=== PATIENT | female | born 1990 | race Caucasian/White ===

== ENCOUNTER 2018-04-10 01:42 | Inpatient (IN) ==
[2018-04-10] MEDS ORDERED: Isovue-370 500 ML INFUS..BTL IV ONE (01:59)
[2018-04-10] MEDS ORDERED: Ipratropium/Albuterol Neb 3 ML IH ONE (02:04)
--- NOTE | 2018-04-10 02:16 | Emergency Department Note ---
Disposition Clinical Impression: Pneumonia Qualifiers: Pneumonia type: due to unspecified organism Laterality: bilateral Lung location: unspecified part of lung Qualified Code(s): J18.9 - Pneumonia, unspecified organism Disposition: Admitted As Inpatient Condition: Good Time of Disposition: 06:35 SOB HPI - General Chief Complaint: ED Shortness of Breath/Dyspnea Stated Complaint: ARTIS, n/v Time Seen by Provider: 04/10/18 01:49 Source: patient Limitations: no limitations Nursing Notes Reviewed: Yes Vital Signs Reviewed: Yes - History of Present Illness Patient is a 28-year-old female who presents to [facility] ED for a 2 week history of difficulty with breathing. The patient states 2 weeks ago that she was seen at an urgent care and diagnosed with bronchitis and put on antibiotics. The patient states that over the course of the week she noticed progressive worsening of her symptoms and presented to [facility] ED 1 week ago where she was diagnosed with pneumonia. Patient states that she was given ibuprofen, and CapMist DM, and prednisone in addition to antibiotics for the management of her condition. Patient states that over the course of the last week she has noted no resolution of her symptoms and continues to deteriorate. Pt Subjective Complaint: shortness of breath, chest pain Onset (ago): week(s) Severity: severe Consistency/Duration: gradually worsening Improves with: oxygen, rest, bronchodilators, upright position Worsens with: exertion, movement Associated symptoms: Reports: chest pain, wheezing, parasthesias, nausea/vomiting Cough present: No - Related Data Home Medications Medication Instructions Recorded Confirmed Tylenol 03/27/18 Previous Rx's Medication Instructions Recorded Albuterol Sulfate [Albuterol 2 puff IH Q4HR #1 hfa.aer.ad 03/27/18 Inhaler] Guaifenesin/Dm/Pseudoephedrine 1 each PO BID #20 tablet 03/27/18 [Capmist Dm Tablet] Ibuprofen [Motrin] 800 mg PO Q8HR #30 tablet 03/27/18 RX: PredniSONE [Deltasone] 20 mg PO DAILY #12 tablet 03/27/18 Azithromycin [Azithromycin 6-Tab 250 mg PO PER PKG DI #6 tab 04/02/18 Pack] GuaiFENesin ER [Mucinex] 1,200 mg PO BID #10 tbbp.12hr 04/02/18 RX: Doxycycline 100 mg PO BID #14 capsule 04/02/18 RX: Lidocaine Patch [Lidoderm 5% 1 each TP DAILY PRN #10 adh..patch 04/02/18 patch] RX: Naproxen [Naprosyn] 500 mg PO BID #10 tablet 04/02/18 Allergies Allergy/AdvReac Type Severity Reaction Status Date / Time No Known Allergies Allergy Verified 03/27/18 20:52 All systems ED: reviewed and negative except as stated. Constitutional: Reports: weakness Cardiovascular: Reports: chest pain, dyspnea on exertion Respiratory: Reports: dyspnea, wheezes Gastrointestinal: Reports: abdominal pain, nausea, vomiting Neurological: Reports: headache, weakness, numbness, paresthesias Endocrine: Reports: fatigue Past Medical History - Past Medical History Medical history: Reports: non-contributory Surgical history: Reports: non-contributory, cholecystectomy, other Psychiatric history: Reports: no psych history POLITICAL AIDE history: Reports: no POLITICAL AIDE history - Social History Smoking Status: Current every day smoker Smokeless Tobacco Status: No Alcohol use: Reports: none Drug use: Reports: none Physical Exam - General Limitations: no limitations General appearance: alert, in distress - Head Head exam: atraumatic, normocephalic, normal inspection - Eye Eye exam: Present: normal appearance, PERRL, EOMI. Absent: scleral icterus, conjunctival injection - Neck Neck exam: Present: trachea midline - Chest Chest inspection: Present: normal inspection, symmetric chest wall rise - Respiratory Respiratory exam: Present: normal lung sounds bilaterally, wheezes, accessory muscle use. Absent: respiratory distress, prolonged expiratory phase - Cardiovascular Cardiovascular exam: Present: regular rate, normal rhythm, +S1, +S2. Absent: JVD, +S3, +S4 - Abdominal Exam Abdominal exam: Present: soft, tenderness, normal bowel sounds. Absent: distention, guarding, rebound, rigidity Abdominal tenderness: Present: RUQ, RLQ - Neurological Exam Neurological exam: Present: alert, oriented X3 - Psychiatric Psychiatric exam: Present: anxious - Skin Skin exam: Present: warm, dry, intact, normal color. Absent: cyanosis, diaphoresis Course Course Narrative: Patient history, review systems and physical exam are concerning for further respiratory deterioration. Chest x-ray and EKG, BNP ordered for evaluation of cardiopulmonary process, CBC, CMP, blood cultures and lactate ordered to eval uate for metabolic derangements. CT ordered for evaluation of possible PE, DuoNeb nebs ordered for management of patient's symptoms. Vital Signs Temperature 98.2 F 04/10/18 01:45 Pulse Rate 93 04/10/18 01:45 Respiratory Rate 24 04/10/18 01:45 Blood Pressure 128/80 04/10/18 01:45 O2 Sat by Pulse Oximetry 81 04/10/18 01:45 Temperature 98.2 F 04/10/18 01:50 Pulse Rate 93 04/10/18 01:50 Respiratory Rate 24 04/10/18 02:20 Blood Pressure 128/80 04/10/18 01:50 O2 Sat by Pulse Oximetry 95 04/10/18 02:20 Oxygen Delivery Oxygen Delivery Room Air Shortness of Breath/Dyspnea - MDM Narrative Medical decision making narrative: Patient admitted to hospital for further follow-up and management. Hospitalist accepted admission. - Lab Data Lab results reviewed: Yes I reviewed the patient's lab results. Result diagrams: 04/10/18 02:56 04/10/18 02:56 Lab Results 04/10/18 04/10/18 04/10/18 Range/Units 02:56 02:56 02:56 WBC 16.3 H (4.3-11.1) K/mcL RBC 4.66 (3.82-4.97) M/mcL Hgb 14.1 (11.5-15.4) g/dL Hct 43.2 (35.3-44.9) % MCV 92.7 (83.0-100.0) fL MCH 30.3 (28.0-33.3) pg MCHC 32.6 (31.6-35.5) g/dL RDW 12.9 (11.5-14.5) % Plt Count 372 (140-400) K/mcL MPV 8.9 L (9.4-12.4) fL Immature Gran % 0.4 (0-4) % Seg Neutrophils % 72.6 % Lymphocytes % 18.9 % Monocytes % 3.2 % Eosinophils % 4.3 % Basophils % 0.6 % Neutrophils # 11.9 H (1.6-8.9) K/mcL Lymphocytes # 3.1 (0.6-4.6) K/mcL Monocytes # 0.5 (0.0-1.3) K/mcL Eosinophils # 0.7 H (0.0-0.6) K/mcL Basophils # 0.1 (0.0-0.2) K/mcL Sodium 138 (136-145) mEq/L Potassium 3.6 (3.5-5.1) mEq/L Chloride 101 (98-107) mEq/L Carbon Dioxide 28 (23-29) mEq/L BUN 13 (6-20) mg/dL Creatinine 0.78 (0.60-1.20) mg/dL Est GFR ( Amer) > 60 (> 60) Est GFR (Non-Af Amer) > 60 (> 60) BUN/Creatinine Ratio 17 (6-26) Glucose 100 (70-105) mg/dL Calculated Osmolality 286 (280-300) Lactic Acid 0.9 (0.5-2.2) mmol/L Calcium 10.1 (8.6-10.3) mg/dL Total Bilirubin 0.5 (0.3-1.0) mg/dL Direct Bilirubin 0.2 (0.0-0.2) mg/dL Indirect Bilirubin 0.3 (0.0-1.2) mg/dL AST 18 (13-39) Units/L ALT 17 (7-52) Units/L Alkaline Phosphatase 68 (34-104) Units/L B-Natriuretic Peptide (Less than 100) pg/mL Serum Total Protein 7.3 (6.4-8.9) g/dL Albumin 4.4 (3.5-5.7) g/dL Globulin 2.9 (2.4-3.5) g/dL Albumin/Globulin Ratio 1.5 (1.1-2.2) Serum , Qual (Negative) 04/10/18 04/10/18 Range/Units 02:56 02:56 WBC (4.3-11.1) K/mcL RBC (3.82-4.97) M/mcL Hgb (11.5-15.4) g/dL Hct (35.3-44.9) % MCV (83.0-100.0) fL MCH (28.0-33.3) pg MCHC (31.6-35.5) g/dL RDW (11.5-14.5) % Plt Count (140-400) K/mcL MPV (9.4-12.4) fL Immature Gran % (0-4) % Seg Neutrophils % % Lymphocytes % % Monocytes % % Eosinophils % % Basophils % % Neutrophils # (1.6-8.9) K/mcL Lymphocytes # (0.6-4.6) K/mcL Monocytes # (0.0-1.3) K/mcL Eosinophils # (0.0-0.6) K/mcL Basophils # (0.0-0.2) K/mcL Sodium (136-145) mEq/L Potassium (3.5-5.1) mEq/L Chloride (98-107) mEq/L Carbon Dioxide (23-29) mEq/L BUN (6-20) mg/dL Creatinine (0.60-1.20) mg/dL Est GFR ( Amer) (> 60) Est GFR (Non-Af Amer) (> 60) BUN/Creatinine Ratio (6-26) Glucose (70-105) mg/dL Calculated Osmolality (280-300) Lactic Acid (0.5-2.2) mmol/L Calcium (8.6-10.3) mg/dL Total Bilirubin (0.3-1.0) mg/dL Direct Bilirubin (0.0-0.2) mg/dL Indirect Bilirubin (0.0-1.2) mg/dL AST (13-39) Units/L ALT (7-52) Units/L Alkaline Phosphatase (34-104) Units/L B-Natriuretic Peptide 26 (Less than 100) pg/mL Serum Total Protein (6.4-8.9) g/dL Albumin (3.5-5.7) g/dL Globulin (2.4-3.5) g/dL Albumin/Globulin Ratio (1.1-2.2) Serum , Qual Negative (Negative) - Radiology Data Radiology results reviewed: Yes I reviewed the patient's radiology results. Chest X-Ray 04/10/18 01:52 IMPRESSION: Improving right perihilar airspace disease. D/ / Cas Rausch MD / Cas Rausch MD Interpreting Provider: Cas Rausch MD Chest CTA 04/10/18 01:59 IMPRESSION: 1. No definite scan evidence for pulmonary embolus. 2. Pulmonary hypertension. 3. Shifting bilateral pulmonary infiltrates, likely infectious or inflammatory. D/ / Cas Rausch MD / Cas Rausch MD Interpreting Provider: Cas Rausch MD - EKG Data EKG attestation: Yes I reviewed and interpreted this EKG. EKG results narrative: Patient EKG shows normal sinus rhythm at 69 bpm NE interval of 142 ms, QRS duration of 103 ms, QT/QTc interval of 248/439 ms respectively. Patient rhythm shows a left axis deviation with R on R prime waves noted in I, aVR and aVL V1 and V2. There are no ST segment elevations or depressions, abnormal T waves, pathologic Q waves, or any other signs of acute ischemic change. Currently previous EKG is not available for comparison.
[2018-04-10 03:09] LABS: Basophils # 0.1 K/mcL (0.0-0.2); Basophils % 0.6 %; Eosinophils # 0.7 K/mcL (0.0-0.6); Eosinophils % 4.3 %; Hematocrit 43.2 % (35.3-44.9); Hemoglobin 14.1 g/dL (11.5-15.4); Immature Granulocytes % 0.4 % (0-4); Lymphocytes # 3.1 K/mcL (0.6-4.6); Lymphocytes % 18.9 %; Mean Corpuscular HGB Conc 32.6 g/dL (31.6-35.5); Mean Corpuscular Hemoglobin 30.3 pg (28.0-33.3); Mean Corpuscular Volume 92.7 fL (83.0-100.0); Mean Platelet Volume 8.9 fL (9.4-12.4); Monocytes # 0.5 K/mcL (0.0-1.3); Monocytes % 3.2 %; Neutrophils # 11.9 K/mcL (1.6-8.9); Platelet Count 372 K/mcL (140-400); Red Blood Count 4.66 M/mcL (3.82-4.97); Red Cell Distribution Width 12.9 % (11.5-14.5); Segmented Neutrophils % 72.6 %
[2018-04-10 03:34] LABS: Alanine Aminotransferase 17 Units/L (7-52); Albumin 4.4 g/dL (3.5-5.7); Albumin/Globulin Ratio 1.5 (1.1-2.2); Alkaline Phosphatase 68 Units/L (34-104); Aspartate Amino Transferase 18 Units/L (13-39); BUN/Creatinine Ratio 17 (6-26); Bilirubin,Direct 0.2 mg/dL (0.0-0.2); Bilirubin,Indirect 0.3 mg/dL (0.0-1.2); Bilirubin,Total 0.5 mg/dL (0.3-1.0); Blood Urea Nitrogen 13 mg/dL (6-20); Calcium 10.1 mg/dL (8.6-10.3); Carbon Dioxide 28 mEq/L (23-29); Chloride 101 mEq/L (98-107); Globulin 2.9 g/dL (2.4-3.5); Glucose 100 mg/dL (70-105); Osmolality,Calculated 286 (280-300); Potassium 3.6 mEq/L (3.5-5.1); Sodium 138 mEq/L (136-145); Total Protein 7.3 g/dL (6.4-8.9); eGFR For Non-African Americans > 60 (> 60)
[2018-04-10] MEDS ORDERED: Levofloxacin 500 MG/100 ML 500 MG/100 ML BAG IVPB ONE (04:11)
[2018-04-10] MEDS ORDERED: Piperacillin/Tazobactam 3.375 GM in 0.9 % Sodium Chloride Mini Bag 100 ML IVPB ONE (04:11)
--- NOTE | 2018-04-10 04:13 | Emergency Department Note ---
Disposition Clinical Impression: Pneumonia Disposition: Admitted As Inpatient Condition: Good General Adult HPI - General Chief complaint: ED Shortness of Breath/Dyspnea Stated complaint: ARTIS, n/v Time Seen by Provider: 04/10/18 01:49 Source: patient Limitations: no limitations - History of Present Illness Pain Scale: 8 - Related Data Home Medications Medication Instructions Recorded Confirmed Tylenol 03/27/18 Previous Rx's Medication Instructions Recorded Albuterol Sulfate [Albuterol 2 puff IH Q4HR #1 hfa.aer.ad 03/27/18 Inhaler] Guaifenesin/Dm/Pseudoephedrine 1 each PO BID #20 tablet 03/27/18 [Capmist Dm Tablet] Ibuprofen [Motrin] 800 mg PO Q8HR #30 tablet 03/27/18 RX: PredniSONE [Deltasone] 20 mg PO DAILY #12 tablet 03/27/18 Azithromycin [Azithromycin 6-Tab 250 mg PO PER PKG DI #6 tab 04/02/18 Pack] GuaiFENesin ER [Mucinex] 1,200 mg PO BID #10 tbbp.12hr 04/02/18 RX: Doxycycline 100 mg PO BID #14 capsule 04/02/18 RX: Lidocaine Patch [Lidoderm 5% 1 each TP DAILY PRN #10 adh..patch 04/02/18 patch] RX: Naproxen [Naprosyn] 500 mg PO BID #10 tablet 04/02/18 Allergies Allergy/AdvReac Type Severity Reaction Status Date / Time No Known Allergies Allergy Verified 03/27/18 20:52 Constitutional: Reports: weakness Cardiovascular: Reports: chest pain, dyspnea on exertion Respiratory: Reports: dyspnea, wheezes Gastrointestinal: Reports: abdominal pain, nausea, vomiting Neurological: Reports: headache, weakness, numbness, paresthesias Endocrine: Reports: fatigue Past Medical History - Past Medical History Medical history: Reports: non-contributory Surgical history: Reports: non-contributory, cholecystectomy, other Psychiatric history: Reports: no psych history AGRICULTURAL SYSTEMS SPECIALIST history: Reports: no AGRICULTURAL SYSTEMS SPECIALIST history - Social History Smoking Status: Current every day smoker Smokeless Tobacco Status: No Alcohol use: Reports: none Drug use: Reports: none Physical Exam - General Limitations: no limitations General appearance: alert, in distress Course Vital Signs Temperature 98.2 F 04/10/18 01:45 Pulse Rate 93 04/10/18 01:45 Respiratory Rate 24 04/10/18 01:45 Blood Pressure 128/80 04/10/18 01:45 O2 Sat by Pulse Oximetry 81 04/10/18 01:45 Temperature 98.2 F 04/10/18 01:50 Pulse Rate 93 04/10/18 01:50 Respiratory Rate 24 04/10/18 02:20 Blood Pressure 128/80 04/10/18 01:50 O2 Sat by Pulse Oximetry 95 04/10/18 02:20 Oxygen Delivery Oxygen Delivery Room Air Medical Decision Making - Lab Data Result diagrams: 04/10/18 02:56 04/10/18 02:56 Lab Results 04/10/18 04/10/18 04/10/18 Range/Units 02:56 02:56 02:56 WBC 16.3 H (4.3-11.1) K/mcL RBC 4.66 (3.82-4.97) M/mcL Hgb 14.1 (11.5-15.4) g/dL Hct 43.2 (35.3-44.9) % MCV 92.7 (83.0-100.0) fL MCH 30.3 (28.0-33.3) pg MCHC 32.6 (31.6-35.5) g/dL RDW 12.9 (11.5-14.5) % Plt Count 372 (140-400) K/mcL MPV 8.9 L (9.4-12.4) fL Immature Gran % 0.4 (0-4) % Seg Neutrophils % 72.6 % Lymphocytes % 18.9 % Monocytes % 3.2 % Eosinophils % 4.3 % Basophils % 0.6 % Neutrophils # 11.9 H (1.6-8.9) K/mcL Lymphocytes # 3.1 (0.6-4.6) K/mcL Monocytes # 0.5 (0.0-1.3) K/mcL Eosinophils # 0.7 H (0.0-0.6) K/mcL Basophils # 0.1 (0.0-0.2) K/mcL Sodium 138 (136-145) mEq/L Potassium 3.6 (3.5-5.1) mEq/L Chloride 101 (98-107) mEq/L Carbon Dioxide 28 (23-29) mEq/L BUN 13 (6-20) mg/dL Creatinine 0.78 (0.60-1.20) mg/dL Est GFR ( Amer) > 60 (> 60) Est GFR (Non-Af Amer) > 60 (> 60) BUN/Creatinine Ratio 17 (6-26) Glucose 100 (70-105) mg/dL Calculated Osmolality 286 (280-300) Lactic Acid 0.9 (0.5-2.2) mmol/L Calcium 10.1 (8.6-10.3) mg/dL Total Bilirubin 0.5 (0.3-1.0) mg/dL Direct Bilirubin 0.2 (0.0-0.2) mg/dL Indirect Bilirubin 0.3 (0.0-1.2) mg/dL AST 18 (13-39) Units/L ALT 17 (7-52) Units/L Alkaline Phosphatase 68 (34-104) Units/L B-Natriuretic Peptide (Less than 100) pg/mL Serum Total Protein 7.3 (6.4-8.9) g/dL Albumin 4.4 (3.5-5.7) g/dL Globulin 2.9 (2.4-3.5) g/dL Albumin/Globulin Ratio 1.5 (1.1-2.2) Serum , Qual (Negative) 04/10/18 04/10/18 Range/Units 02:56 02:56 WBC (4.3-11.1) K/mcL RBC (3.82-4.97) M/mcL Hgb (11.5-15.4) g/dL Hct (35.3-44.9) % MCV (83.0-100.0) fL MCH (28.0-33.3) pg MCHC (31.6-35.5) g/dL RDW (11.5-14.5) % Plt Count (140-400) K/mcL MPV (9.4-12.4) fL Immature Gran % (0-4) % Seg Neutrophils % % Lymphocytes % % Monocytes % % Eosinophils % % Basophils % % Neutrophils # (1.6-8.9) K/mcL Lymphocytes # (0.6-4.6) K/mcL Monocytes # (0.0-1.3) K/mcL Eosinophils # (0.0-0.6) K/mcL Basophils # (0.0-0.2) K/mcL Sodium (136-145) mEq/L Potassium (3.5-5.1) mEq/L Chloride (98-107) mEq/L Carbon Dioxide (23-29) mEq/L BUN (6-20) mg/dL Creatinine (0.60-1.20) mg/dL Est GFR ( Amer) (> 60) Est GFR (Non-Af Amer) (> 60) BUN/Creatinine Ratio (6-26) Glucose (70-105) mg/dL Calculated Osmolality (280-300) Lactic Acid (0.5-2.2) mmol/L Calcium (8.6-10.3) mg/dL Total Bilirubin (0.3-1.0) mg/dL Direct Bilirubin (0.0-0.2) mg/dL Indirect Bilirubin (0.0-1.2) mg/dL AST (13-39) Units/L ALT (7-52) Units/L Alkaline Phosphatase (34-104) Units/L B-Natriuretic Peptide 26 (Less than 100) pg/mL Serum Total Protein (6.4-8.9) g/dL Albumin (3.5-5.7) g/dL Globulin (2.4-3.5) g/dL Albumin/Globulin Ratio (1.1-2.2) Serum , Qual Negative (Negative) Critical Care Time Critical Care Time: Yes Total Critical Care Time: 30 Attestation: The high probability of a clinically significant, sudden or life threatening deterioration of the [] system(s) required my full and direct attention, intervention and personal management. The aggregate critical care time was [] minutes. This time is in addition to time spent performing reported procedures but includes the following: [] Data Review and interpretation [] Patient assessment and monitoring of vital signs [] Documentation [] Medication orders and management Attestation Statement - Attestation Attestation: I examined this patient and my medical decision-making was reviewed with the Resident Physician. I agree with the documented findings, disposition and treatment plan as described except to the extent set forth below. [id number] time provided Patient presents with dyspnea. She was hypoxic in the 70s upon arrival. She responded to supplemental oxygen. She has recently been treated as an outpatient for bronchitis and community acquired pneumonia. She states her symptoms are worsening. CTA chest indicates multifocal pneumonia. She meets sepsis criteria due to leukocytosis and tachypnea. Broad-spectrum antibiotics were initiated
[2018-04-10] MEDS ORDERED: 0.9 % Sodium Chloride 1,000 ML IVC SCH (04:45)
[2018-04-10] MEDS ORDERED: GuaiFENesin/Codeine Oral Soln 5 ML UDC PO PRN (04:56)
--- NOTE | 2018-04-10 05:15 | Internal Med History&Physical ---
Date of Encounter: 04/10/18 Time of Encounter: 05:12 Internal Medicine - H&P: HPI Chief complaint: Shortness of breath Admitted From: Home Plans for Post Hospital Care: Home History of present illness: Yael Mosley is a 78-year-old woman with no reported past medical history comes in to the ER with complaints of difficulty breathing for 3 weeks. She states that 3 weeks ago she started to have upper respiratory symptoms as noted by runny nose, cough with congestion and sore throat. She was seen in an urgent care center where she was diagnosed with a URI and prescribed steroids, albuterol and antibiotic. She says she does not improve in a week later she came to the emergency room where she was diagnosed with right-sided pneumonia. Again she was prescribed cough suppressant medications, pain control and a course of antibiotics which again she says did not improve her symptoms. She continued to have progressive shortness of breath coupled with chest pain due to the incessant coughing episodes that have become nonproductive. She says that she coughs so much that she starts to vomit afterwards. She has had subjective fever and chills and now complains of generalized malaise and difficulty breathing on mild to moderate exertion. She denies any sick contacts at home. In the emergency room today she was seen to be hypoxic on room air to 80 and required supplemental oxygen. Lab work done was revealing of a white count of 16. Chest CT was done as a follow-up to the prior x-ray and now shows progressing bilateral interstitial infiltrates in both lung dougherty. Broad- spectrum antibiotics were ordered and blood cultures obtained. She is admitted for further care Past medical history as stated above. Surgical history remarkable for cholecystectomy. She is an active smoker but denies illicit drug use on social history. 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 Family history remarkable for DM in mother. 10 point systems were reviewed and are negative except as listed above. Past Med Surg Social Fam HX - Past Medical History Medical history: non-contributory Psychiatric history: no psych history - Past Surgical History Surgical History: non-contributory, cholecystectomy, other Additional surgical history: cyst removed from wrist. tubes in ears - Social History Smoking Status: Current every day smoker Smokeless Tobacco Status: No Alcohol use: none Drug use: none Internal Medicine - H&P: Meds Albuterol Sulfate [Albuterol Inhaler] 2 puff IH Q4HR #1 hfa.aer.ad 03/27/18 [Rx] Guaifenesin/Dm/Pseudoephedrine [Capmist Dm Tablet] 1 each PO BID #20 tablet 03/27/18 [Rx] Ibuprofen [Motrin] 800 mg PO Q8HR #30 tablet 03/27/18 [Rx] PredniSONE [Deltasone] 20 mg PO DAILY #12 tablet 03/27/18 [Rx] Tylenol 03/27/18 [History] Azithromycin [Azithromycin 6-Tab Pack] 250 mg PO PER PKG DI #6 tab 04/02/18 [Rx] Doxycycline 100 mg PO BID #14 capsule 04/02/18 [Rx] GuaiFENesin ER [Mucinex] 1,200 mg PO BID #10 tbbp.12hr 04/02/18 [Rx] Lidocaine Patch [Lidoderm 5% patch] 1 each TP DAILY PRN #10 adh..patch 04/02/18 [Rx] Naproxen [Naprosyn] 500 mg PO BID #10 tablet 04/02/18 [Rx] Allergy/AdvReac Type Severity Reaction Status Date / Time No Known Allergies Allergy Verified 03/27/18 20:52 All Systems PM: A 10-system review of systems was performed and is negative for pertinent findings except as documented above in the HPI. - Constitutional Vitals: Temp Pulse Resp BP Pulse Ox 98.2 F 93 24 128/80 95 04/10/18 01:50 04/10/18 01:50 04/10/18 02:20 04/10/18 01:50 04/10/18 02:20 Exam: Vitals: Reviewed General: Obese white female sitting up in bed in no acute( Skin: Warm and supple HEENT: Moist mucous membranes. No conjunctivae pallor. Neck: No lymphadenopathy. No JVD. No carotid bruits. No palpable thyroid. Chest: Diminished thoracic expansion. Reduced breath sounds bilaterally with expiratory wheezes in the upper lung dougherty. Heart: Normal S1 & S2; rhythmic. No rubs or murmurs. Abdomen: Non-distended, soft and non-tender to palpation. No peritoneal reaction. Extremities: No clubbing, cyanosis or edema. No calf tenderness. Normal distal pulses. Neurological: Awake, alert and oriented to person, place and time. No focal deficits. Psych: Affect appropriate. Internal Med - H&P Results - Labs CBC & Chem 7: 04/10/18 02:56 04/10/18 02:56 Labs: Short CBC 04/10/18 Range/Units 02:56 WBC 16.3 H (4.3-11.1) K/mcL Hgb 14.1 (11.5-15.4) g/dL Hct 43.2 (35.3-44.9) % Plt Count 372 (140-400) K/mcL Neutrophils # 11.9 H (1.6-8.9) K/mcL BMP 04/10/18 02:56 Sodium 138 Potassium 3.6 Chloride 101 Carbon Dioxide 28 BUN 13 Creatinine 0.78 Glucose 100 Calcium 10.1 Liver Function 04/10/18 Range/Units 02:56 Total Bilirubin 0.5 (0.3-1.0) mg/dL Direct Bilirubin 0.2 (0.0-0.2) mg/dL AST 18 (13-39) Units/L ALT 17 (7-52) Units/L Alkaline Phosphatase 68 (34-104) Units/L Albumin 4.4 (3.5-5.7) g/dL - Impressions ITS Impressions Chest X-Ray 04/10/18 01:52 IMPRESSION: Improving right perihilar airspace disease. D/ / Cas Rausch MD / Cas Rausch MD Interpreting Provider: Cas Rausch MD Chest CTA 04/10/18 01:59 IMPRESSION: 1. No definite scan evidence for pulmonary embolus. 2. Pulmonary hypertension. 3. Shifting bilateral pulmonary infiltrates, likely infectious or inflammatory. D/ / Cas Rausch MD / Cas Rausch MD Interpreting Provider: Cas Rausch MD - Diagnostic Studies Chest x-ray Status: image reviewed by me Additional comments: Seen to have a right-sided perihilar infiltrate concerning for developing pneumonia on prior x-ray. CT scan - chest Status: image reviewed by me Additional comments: CT scan today depicts bilateral parenchymal infiltrates affecting both lung dougherty in a nonspecific pattern - Assessment and plan (1) Pneumonia Current Visit: Yes Status: Acute Assessment and plan: Her initial respiratory symptoms are concerning for a viral URI however her symptoms progressed over the last few weeks and she developed a pneumonia which was unresponsive to outpatient antibiotic therapy and now has bilateral infiltrates coupled with hypoxia and leukocytosis concerning for progressive process it is possible she may have had an underlying viral infection now with superimposed bacterial infection warrants broad-spectrum coverage. Staphylococcus typically has a tendency to do this however atypical agents as well need to be targeted given the duration of her symptoms and progressive nature. Need to send urine streptococcus and legionella antigen testing, blood cultures, sputum Gram stain with culture, influenza swab and respiratory virus panel given the severity of her illness. Provide antimicrobial coverage with vancomycin every 12 hours and levofloxacin daily for these first 24 hours and de-escalate as deemed fit based on her clinical evolution and ongoing lab results. She should be screended for HIV prior to discharge. Qualifiers: Pneumonia type: due to unspecified organism Laterality: bilateral Lung location: unspecified part of lung Qualified Code(s): J18.9 - Pneumonia, unspecified organism (2) Acute respiratory failure with hypoxia Current Visit: Yes Status: Acute Assessment and plan: As indicated above. Supplemental oxygen as needed. Should improve with treatment of the underlying pathology. (3) Obese Current Visit: Yes Status: Acute Assessment and plan: She will benefit from oncology specialist consultation. Qualifiers: Obesity type: due to excess calories Obesity classification: adult class 2 (BMI 35 - 39.9) Serious obesity comorbidity presence: unspecified whether serious comorbidity present Body mass index: BMI 39.0-39.9 Qualified Code(s): E66.09 - Other obesity due to excess calories; Z68.39 - Body mass index (BMI) 39.0-39.9, adult (4) DVT prophylaxis Current Visit: Yes Status: Acute Assessment and plan: Subcutaneous heparin is indicated - Time Spent With Patient Total time spent is greater than 50% in coordination of care (as documented) at patient's floor/unit and/or counseling patient: Greater than 35 minutes
[2018-04-10] MEDS: Ringers Solution, Lactated 1,000 ML IVC SCH ×2 (06:57→16:04)
[2018-04-10] MEDS: Vancomycin 500 MG in 0.9 % Sodium Chloride Mini Bag 100 ML IVPB ONE ×2 (07:30→09:03)
[2018-04-10] MEDS: Ipratropium/Albuterol Neb 3 ML IH SCH ×5 (07:39→19:50)
[2018-04-10] MEDS ORDERED: Aminoglycoside Consult 1 EACH MC ONE (08:30)
[2018-04-10 08:49] LABS: ABG Base Excess 3 mEq/L (-2 to 3); ABG HCO3 28 mEq/L (21-27); ABG Oxygen Saturation 95 % (95-98); ABG PCO2 39 mmHg (35-45); ABG PH 7.45 pH Units (7.32-7.45); ABG PO2 70 mmHg (85-104); ABG TCO2 29 mEq/L (20-26)
[2018-04-10] MEDS: *HR* Heparin 5,000 UNIT/ML VIAL SQ SCH ×2 (09:03→15:15)
[2018-04-10 13:14] LABS: Amphetamine Screen,Urine Negative ng/mL (Cutoff=1000); Barbiturate Screen,Urine Negative ng/mL (Cutoff=200); Benzodiazepines Screen,Urine Negative ng/mL (Cutoff=200); Cannabinoid Screen,Urine Negative ng/mL (Cutoff = 50); Cocaine Screen,Urine Positive ng/mL (Cutoff= 300); Opiate Screen,Urine Positive ng/mL (Cutoff=300); Phencyclidine Screen,Urine Negative ng/mL (Cutoff=25)
[2018-04-10] MEDS ORDERED: *HR* Dextrose 50 % in Water (Syg) 50 ML SYRINGE IVP PRN (14:30)
[2018-04-10] MEDS ORDERED: D5% in Water 1,000 ML IVC PRN (14:30)
[2018-04-10] MEDS ORDERED: Dextrose Gel 15 GM/37.5 ML TUBE PO PRN ×2 (14:30)
--- NOTE | 2018-04-10 14:32 | Event Note ---
Date of Encounter: 04/10/18 Time of Encounter: 14:31 Patient seen and evaluated at bedside. Respiratory distress on admission has improved. Patient continues to be on Bipap. Hemodynamically stable. Will continue IV antibiotics, Nebs plus IV steroids.
[2018-04-10 14:37] LABS: Adenovirus Not Detected (Not Detect); Bordetella Pertussis Not Detected (Not Detect); Chlamydophila pneumoniae Not Detected (Not Detect); Coronavirus 229E Not Detected (Not Detect); Coronavirus HKU1 Not Detected (Not Detect); Coronavirus NL63 Not Detected (Not Detect); Coronavirus OC43 Not Detected (Not Detect); Human Metapneumovirus Not Detected (Not Detect); Human Rhinovirus/Enterovirus Not Detected (Not Detect); Influenza A Subtype 2009 H1 Not Detected (Not Detect); Influenza A Untypeable Not Detected (Not Detect); Influenza B Not Detected (Not Detect); Mycoplasma pneumoniae Not Detected (Not Detect); Parainfluenza Virus 1 Not Detected (Not Detect); Parainfluenza Virus 2 Not Detected (Not Detect); Parainfluenza Virus 3 Not Detected (Not Detect); Parainfluenza Virus 4 Not Detected (Not Detect); Respiratory Syncytial Virus Not Detected (Not Detect)
[2018-04-10] MEDS: MethylPREDNISolone 40 MG/ML VIAL IVP SCH ×2 (15:15→18:07)
[2018-04-10] MEDS: Piperacillin/Tazobactam 3.375 GM in 0.9 % Sodium Chloride Mini Bag 100 ML IVPB SCH (15:15)
[2018-04-10] MEDS: Insulin LISPRO 300 UNITS/3 ML VIAL SQ SCH (17:56)
[2018-04-10] MEDS ORDERED: Ondansetron 4 MG/2 ML VIAL IVP ONE (21:49)
[2018-04-11] MEDS: Ipratropium/Albuterol Neb 3 ML IH SCH ×5 (00:03→22:54)
[2018-04-11] MEDS: *HR* Heparin 5,000 UNIT/ML VIAL SQ SCH ×4 (00:36→23:55)
[2018-04-11] MEDS: Piperacillin/Tazobactam 3.375 GM in 0.9 % Sodium Chloride Mini Bag 100 ML IVPB SCH ×4 (00:37→23:56)
[2018-04-11] MEDS ORDERED: Acetaminophen 325 MG TABLET PO PRN (01:05)
[2018-04-11] MEDS: MethylPREDNISolone 40 MG/ML VIAL IVP SCH ×2 (05:09→17:43)
[2018-04-11 08:06] LABS: Hematocrit 37.9 % (35.3-44.9); Hemoglobin 12.5 g/dL (11.5-15.4); Mean Corpuscular Hemoglobin 30.5 pg (28.0-33.3); Mean Corpuscular Volume 92.4 fL (83.0-100.0); Mean Platelet Volume 9.2 fL (9.4-12.4); Platelet Count 344 K/mcL (140-400); Red Cell Distribution Width 12.8 % (11.5-14.5)
[2018-04-11 08:22] LABS: BUN/Creatinine Ratio 18 (6-26); Blood Urea Nitrogen 12 mg/dL (6-20); Carbon Dioxide 24 mEq/L (23-29); Chloride 105 mEq/L (98-107); Glucose 139 mg/dL (70-105); Potassium 3.8 mEq/L (3.5-5.1); Sodium 137 mEq/L (136-145); eGFR For Non-African Americans > 60 (> 60)
[2018-04-11 08:23] LABS: Calcium 9.6 mg/dL (8.6-10.3); Magnesium 1.9 mg/dL (1.6-2.6); Osmolality,Calculated 286 (280-300); Phosphorous 3.1 mg/dL (2.7-4.5)
--- NOTE | 2018-04-11 08:40 | Internal Med Progress Note ---
Hospitalist Progress Note - Encounter Date of Encounter: 04/11/18 Time of Encounter: 08:38 - Subjective Interval History: patient seen and evaluated at bedside, reports that her breathing has improved but still feeling short of breath. reports being on the Bipap until 6am this morning. Denies chest pain, nausea or vomiting. - Exam Vitals: Temp Pulse Resp BP Pulse Ox 97.5 F L 65 27 128/73 96 04/11/18 04:12 04/11/18 04:12 04/11/18 04:12 04/11/18 04:12 04/11/18 04:12 Exam: Vitals: Reviewed General: Obese. Mild distress due to shortness of breath. Skin: Warm and supple. HEENT: Moist mucous membranes. No conjunctivae pallor. Neck: No lymphadenopathy. No JVD. No carotid bruits. No palpable thyroid. Chest: Diminished breath sounds bilaterally. No wheezes, rales or rhonchi. Heart: Normal S1 & S2; rhythmic. No rubs or murmurs. Abdomen: Obese, Non-distended, soft and non-tender to palpation. Extremities: No cyanosis or edema. No calf tenderness. Normal distal pulses. Neurological: Awake, alert and oriented to person, place and time. No focal deficits. Psych: Affect appropriate. - Assessment and Plan (1) Pneumonia Current Visit: Yes Status: Acute Assessment and Plan: Suspected bacterial. organism Unidentified Plan Sputum culture negative Urine for a typical negative Blood cultures no growth pending final report. Discontinue vancomycin Continue piperacillin tazobactam Incentive spirometry Continue Solu-Medrol 40 mg IV every 12HRs (2) Acute respiratory failure with hypoxia Current Visit: Yes Status: Acute Assessment and Plan: Most likely due to pneumonia vs cocaine abuse. Resolving. But patient is still requiring 3 L of oxygen by nasal cannula. on BiPAP until this am. Plan Titrate off the BiPAP as tolerated Continue oxygen by nasal cannula, titrate for O2 sat duration more than 92%. (3) Obese Current Visit: Yes Status: Chronic DVT Prophylaxis: On heparin subcutaneous. - Summary of Assessment and Plan Summary of Assessment and Plan: Patient to remain in the hospital to be titrated off the BiPAP. Potential discharge tomorrow morning. - Time Spent with Patient Total time spent is greater than 50% in coordination of care (as documented) at patient's floor/unit and/or counseling patient: 25 - 35 minutes (33) Plan of Care Discussed with: patient (and the nurse.) Internal Medicine: Result - Labs CBC & Chem 7: 04/11/18 07:50 04/11/18 07:50 Labs: Short CBC 04/11/18 Range/Units 07:50 WBC 11.8 H (4.3-11.1) K/mcL Hgb 12.5 D (11.5-15.4) g/dL Hct 37.9 (35.3-44.9) % Plt Count 344 (140-400) K/mcL BMP 04/11/18 07:50 Sodium 137 Potassium 3.8 Chloride 105 Carbon Dioxide 24 BUN 12 Creatinine 0.65 Glucose 139 H Calcium 9.6 - ABG Interpretation ABG results: ABG ABG pH 7.45 pH Units (7.32-7.45) 04/10/18 08:40 ABG pCO2 39 mmHg (35-45) 04/10/18 08:40 ABG pO2 70 mmHg (85-104) L 04/10/18 08:40 ABG O2 Saturation 95 % (95-98) 04/10/18 08:40 Consult Discharge Plan - Plan Referrals: NONE,PCP [Primary Care Provider] - (1) Pneumonia Qualifiers: Pneumonia type: due to unspecified organism Laterality: bilateral Lung location: unspecified part of lung Qualified Code(s): J18.9 - Pneumonia, unspecified organism (3) Obese Qualifiers: Obesity type: due to excess calories Obesity classification: adult class 2 (BMI 35 - 39.9) Serious obesity comorbidity presence: unspecified whether serious comorbidity present Body mass index: BMI 39.0-39.9 Qualified Code(s): E66.09 - Other obesity due to excess calories; Z68.39 - Body mass index (BMI) 39.0-39.9, adult
[2018-04-11] MEDS ORDERED: Levofloxacin 500 MG/100 ML 500 MG/100 ML BAG IVPB SCH (09:00)
[2018-04-11] MEDS: Insulin LISPRO 300 UNITS/3 ML VIAL SQ SCH ×3 (09:03→17:40)
[2018-04-11] MEDS ORDERED: Albuterol 2.5 MG/3 ML NEBULIZER IH PRN (14:17)
[2018-04-12] MEDS: Ipratropium/Albuterol Neb 3 ML IH SCH ×2 (04:33→10:55)
[2018-04-12] MEDS: MethylPREDNISolone 40 MG/ML VIAL IVP SCH (04:58)
[2018-04-12 06:11] LABS: Basophils % 0.2 %; Eosinophils % 0.2 %; Hematocrit 37.5 % (35.3-44.9); Hemoglobin 12.4 g/dL (11.5-15.4); Immature Granulocytes % 0.7 % (0-4); Lymphocytes # 2.4 K/mcL (0.6-4.6); Lymphocytes % 19.3 %; Mean Corpuscular HGB Conc 33.1 g/dL (31.6-35.5); Mean Corpuscular Hemoglobin 30.5 pg (28.0-33.3); Mean Corpuscular Volume 92.4 fL (83.0-100.0); Mean Platelet Volume 9.1 fL (9.4-12.4); Monocytes # 0.6 K/mcL (0.0-1.3); Monocytes % 4.4 %; Neutrophils # 9.3 K/mcL (1.6-8.9); Platelet Count 354 K/mcL (140-400); Red Blood Count 4.06 M/mcL (3.82-4.97); Segmented Neutrophils % 75.2 %
[2018-04-12 06:29] LABS: BUN/Creatinine Ratio 18 (6-26); Blood Urea Nitrogen 12 mg/dL (6-20); Calcium 9.2 mg/dL (8.6-10.3); Carbon Dioxide 23 mEq/L (23-29); Chloride 106 mEq/L (98-107); Glucose 117 mg/dL (70-105); Magnesium 1.9 mg/dL (1.6-2.6); Osmolality,Calculated 287 (280-300); Phosphorous 3.4 mg/dL (2.7-4.5); Potassium 4.1 mEq/L (3.5-5.1); Sodium 138 mEq/L (136-145); eGFR For Non-African Americans > 60 (> 60)
[2018-04-12 07:11] VITALS: BP 122/56
[2018-04-12] MEDS: Insulin LISPRO 300 UNITS/3 ML VIAL SQ SCH ×2 (07:42→12:07)
[2018-04-12] MEDS: *HR* Heparin 5,000 UNIT/ML VIAL SQ SCH (09:50)
[2018-04-12] MEDS: Piperacillin/Tazobactam 3.375 GM in 0.9 % Sodium Chloride Mini Bag 100 ML IVPB SCH (09:51)
--- NOTE | 2018-04-12 11:17 | Discharge Summary ---
- NOTES TO OUTPATIENT PROVIDER Notes to Outpatient Provider: Follow-up with your primary care within a week of hospital discharge. Orders not resulted at time of discharge: Pending orders 04/10/18 03:12 Culture,Blood [BC] Stat 04/10/18 04:58 Rapid Influenza [Influenza A/B Antigen] [VIR] Stat Date of Encounter: 04/12/18 Time of Encounter: 11:13 - Discharge Diagnosis (1) Pneumonia Priority: Primary Status: Acute Qualifiers: Pneumonia type: due to unspecified organism Laterality: bilateral Lung lo cation: unspecified part of lung Qualified Code(s): J18.9 - Pneumonia, unspecified organism (2) Acute respiratory failure with hypoxia Priority: Secondary Status: Resolved (3) Obese Priority: Secondary Status: Chronic Qualifiers: Obesity type: due to excess calories Obesity classification: adult class 2 (BMI 35 - 39.9) Serious obesity comorbidity presence: unspecified whether serious comorbidity present Body mass index: BMI 39.0-39.9 Qualified Code(s): E66.09 - Other obesity due to excess calories; Z68.39 - Body mass index (BMI) 39.0-39.9, adult (4) Substance abuse Priority: Secondary Status: Acute Assessment and Plan: Positive cocaine and opiates in the urine Hospital course: Ms. Mosley is a 28 year old female with no reported past medical history. Patient presented to the emergency room due to productive cough, shortness of breath. Patient reported that in the days before presenting to the emergency room she was diagnosed with an upper respiratory infection and was prescribed steroids and antibiotics. Which did not improve her symptoms. She came back to the emergency room and was diagnosed with right-sided pneumonia, and was discha rged home on oral antibiotics. But patient return to the emergency room due to no improvement of her respiratory symptoms. Patient was found to be hypoxic on room air with an O2 sat duration 80%. Patient admitted to the hospital and treated with broad-spectrum IV antibiotics and oxygen by BiPAP as subsequently by nasal cannula. A CT of the chest was done which showed progressive bilateral and interstitial infiltrates in both lung dougherty. Patient acute symptoms have resolved. And patient is hemodynamically (afebrile for the past 72 hours, no tachycardic, normotensive, and decreased oxygen requirement) stable to be discharged home on oral antibiotics to complete 7 days course, and oral steroids. Patient was educated about importance of not using slashes snorting cocaine - Time Spent with Patient Total time spent providing and/or coordinating discharge services: Greater than 30 minutes (35 minutes.) - Discharge Medications Prescriptions: GuaiFENesin ER [Mucinex] 1,200 mg PO BID 10 Days #20 tbbp.12hr Levofloxacin [Levaquin] 750 mg PO DAILY 7 Days #7 tablet Home Medications: Albuterol Neb [Proventil Neb] 2.5 mg IH Q2H PRN 10 Days #1 inhsol 04/12/18 [Rx] GuaiFENesin ER [Mucinex] 1,200 mg PO BID 10 Days #20 tbbp.12hr 04/12/18 [Rx] Levofloxacin [Levaquin] 750 mg PO DAILY 7 Days #7 tablet 04/12/18 [Rx] Allergies/Adverse Reactions: Allergy/AdvReac Type Severity Reaction Status Date / Time No Known Allergies Allergy Verified 04/10/18 07:07 Date of admission: 04/10/18 05:35 Primary care physician: PCP NONE - Constitutional Vitals: Temp Pulse Resp BP Pulse Ox 98.1 F 57 16 122/56 94 04/12/18 07:10 04/12/18 07:10 04/12/18 11:03 04/12/18 07:10 04/12/18 11:03 Exam: Vitals: Reviewed General: Obese. In no acute distress. Skin: Warm and supple. HEENT: Moist mucous membranes. No conjunctivae pallor. Neck: No lymphadenopathy. No JVD. No carotid bruits. No palpable thyroid. Chest: Good air entry, chest is clear to auscultation bilaterally, No wheezes, rales or rhonchi. Heart: Normal S1 & S2; rhythmic. No rubs or murmurs. Abdomen: Obese, Non-distended, soft and non-tender to palpation. Extremities: No edema. Normal distal pulses. Neurological: Awake, alert and oriented to person, place and time. No focal deficits. CN II-XII intact. Psych: Affect appropriate. - Patient Status Disposition: Home, Self-Care Condition: Good Functional capacity at discharge: independent ambulation Overall status at discharge: patient is progressing back to baseline - Discharge Instructions Follow Up With: NONE,PCP [Primary Care Provider] - Forms: ED Satisfaction Letter - Diet and Activity Activity: resume usual activities as tolerated Diet: advance to your usual diet
--- NOTE | 2018-04-12 21:31 | Electrocardiograph Report ---
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
[2018-04-13] MEDS ORDERED: MethylPREDNISolone 40 MG/ML VIAL IVP SCH (09:00)
== END 2018-04-12 14:01 | disposition home or self-care (01) | DRG 139 ==
LOC: EMEROOARM 01:42 → 2NENU 05:35 → SUATTDRO 05:35 → 2NENU 07:50
PROVIDERS: ADMIT Internal Medicine; ATTEND Internal Medicine

== ENCOUNTER 2018-09-09 15:10 | Inpatient (IN) ==
[2018-09-09] MEDS ORDERED: methylPREDNISolone 125 MG/2 ML VIAL IVP ONE (15:45)
[2018-09-09] MEDS ORDERED: Ipratropium/Albuterol Neb 3 ML IH ONE (15:45)
[2018-09-09] MEDS ORDERED: 0.9 % Sodium Chloride 1,000 ML IVC ONE (15:45)
[2018-09-09] MEDS ORDERED: Ondansetron 4 MG/2 ML VIAL IVP ONE (15:47)
[2018-09-09 16:32] LABS: Basophils # 0.1 K/mcL (0.0-0.2); Basophils % 0.4 %; Eosinophils # 0.4 K/mcL (0.0-0.6); Eosinophils % 2.7 %; Hematocrit 43.1 % (35.3-44.9); Hemoglobin 14.1 g/dL (11.5-15.4); Immature Granulocytes % 0.4 % (0-4); Lymphocytes # 1.3 K/mcL (0.6-4.6); Lymphocytes % 9.3 %; Mean Corpuscular HGB Conc 32.7 g/dL (31.6-35.5); Mean Corpuscular Hemoglobin 30.3 pg (28.0-33.3); Mean Corpuscular Volume 92.7 fL (83.0-100.0); Mean Platelet Volume 9.2 fL (9.4-12.4); Monocytes # 0.4 K/mcL (0.0-1.3); Monocytes % 2.8 %; Neutrophils # 11.4 K/mcL (1.6-8.9); Platelet Count 454 K/mcL (140-400); Red Blood Count 4.65 M/mcL (3.82-4.97); Red Cell Distribution Width 12.8 % (11.5-14.5); Segmented Neutrophils % 84.4 %
[2018-09-09 16:54] LABS: BUN/Creatinine Ratio 13 (6-26); Blood Urea Nitrogen 13 mg/dL (6-20); Calcium 10.2 mg/dL (8.6-10.3); Carbon Dioxide 28 mEq/L (23-29); Chloride 101 mEq/L (98-107); Glucose 105 mg/dL (70-105); Osmolality,Calculated 288 (280-300); Potassium 3.5 mEq/L (3.5-5.1); Sodium 139 mEq/L (136-145); eGFR For Non-African Americans > 60 (> 60)
--- NOTE | 2018-09-09 16:54 | Emergency Department Note ---
Disposition Clinical Impression: Elevated troponin Pneumonia Qualifiers: Pneumonia type: due to unspecified organism Laterality: unspecified laterality Lung location: unspecified part of lung Qualified Code(s): J18.9 - Pneumonia, unspecified organism Disposition: Still a Patient Condition: Fair Referrals: NONE,PCP [Primary Care Provider] - Forms: ED Satisfaction Letter Time of Disposition: 19:10 General Adult HPI - General Chief complaint: ED Shortness of Breath/Dyspnea Stated complaint: SOB/CP Time Seen by Provider: 09/09/18 15:33 Source: patient Limitations: no limitations Nursing Notes Reviewed: Yes Vital Signs Reviewed: Yes - History of Present Illness HPI Narrative: Patient is a 28 year old female with past medical history significant for pneumonia treated in March of last year. Patient states she has had cough, w heezing, shortness of breath, nausea and vomiting for 2 days. Her shortness of breath is worsened this morning prompting her to present for treatment. She denies any recent travel or sick contacts. States she does have generalized chest pain, this is worse with coughing episodes. fevers, chills, hemoptysis, hematemesis, diarrhea. She history of denies cardiopulmonary disease. Pt Subjective Complaint: Shortness of breath Onset (ago): day(s) Location: chest Pain Scale: 7 - Related Data Home Medications Medication Instructions Recorded Confirmed No Known Home Drugs 09/09/18 09/09/18 Allergies Allergy/AdvReac Type Severity Reaction Status Date / Time No Known Allergies Allergy Verified 08/29/18 14:21 All systems ED: reviewed and negative except as stated. Constitutional: Denies: fever, chills Eyes: Denies: vision change ENT ED: Reports: congestion Cardiovascular: Reports: chest pain. Denies: palpitations, syncope Respiratory: Reports: cough, dyspnea, wheezes, sputum production. Denies: hemoptysis Gastrointestinal: Reports: abdominal pain, nausea, vomiting. Denies: diarrhea, hematemesis, hematochezia Musculoskeletal: Denies: back pain, neck pain Integumentary: Denies: rash Neurological: Reports: headache Past Medical History - Past Medical History Source: patient, nursing notes reviewed Medical history: Reports: no medical history Surgical history: Reports: non-contributory, cholecystectomy, other Psychiatric history: Reports: no psych history SPECTRAL SCIENTIST history: Reports: no SPECTRAL SCIENTIST history - Social History Smoking Status: Current every day smoker Smokeless Tobacco Status: No Alcohol use: Reports: none Drug use: Reports: none Physical Exam - General Limitations: no limitations General appearance: alert, in no apparent distress - Head Head exam: atraumatic, normocephalic - Eye Eye exam: Present: EOMI. Absent: scleral icterus, conjunctival injection - ENT ENT exam: mucous membranes dry - Neck Neck exam: Present: full ROM, trachea midline - Chest Chest inspection: Present: symmetric chest wall rise - Respiratory Respiratory exam: Present: respiratory distress, wheezes - Expanded Respiratory Exam Location: wheezes: Left, Right - Cardiovascular Cardiovascular exam: Present: regular rate, normal rhythm - Abdominal Exam Abdominal exam: Present: soft, Non-Tender. Absent: distention, guarding, rebound - Extremities Exam Extremities exam: Absent: pedal edema, calf tenderness - Neurological Exam Neurological exam: Present: alert, oriented X3, CN II-XII intact - Skin Skin exam: Present: warm, dry. Absent: rash Course Course Narrative: Patient presenting for evaluation of shortness of breath. Diffuse wheezing to exam with increased respiratory rate. Sats at 91% on 6L by oxymask. Will give triple duoneb, solumedrol, and IV fluids. Obtain cbc, bmp, troponin, chest xray, ekg, ddimer. - Reevaluation(s) Reevaluation #1: Patient is seen and re-evaluated at the bedside. Reports some improvement in comfort of breathing. Patient chest xray with LLL infiltrate, troponin 0.13, ekg with rsr' in V1 and V2, influenza negative, mildly elevated ddimer. Dr. Willingham with cardiology was consulted. She reports that she does not feel the elevated troponin is acs, attributes this to patients pneumonia or a possible PE. Patient will be sent for CTA of chest. Time: 18:00 Reevaluation #2: Patient dropped urine sample in the toilet. I have contacted the lab twice about the ordered serum test. This has just been collected. Will get CTA of the chest pending test. Plan for admission with diagnosis of hypoxia pending CTA Time: 18:53 Vital Signs Temperature 99.2 F 09/09/18 15:23 Pulse Rate 117 09/09/18 15:23 Respiratory Rate 30 09/09/18 15:23 Blood Pressure 118/81 09/09/18 15:23 O2 Sat by Pulse Oximetry 83 03/31/19 15:23 Temperature 99.7 F H 09/09/18 15:50 Pulse Rate 92 09/09/18 18:20 Respiratory Rate 20 09/09/18 18:20 Blood Pressure 114/54 09/09/18 18:20 O2 Sat by Pulse Oximetry 91 09/09/18 18:20 Oxygen Delivery Oxygen Delivery Nasal Cannula Medical Decision Making - Lab Data Result diagrams: 09/09/18 16:10 09/09/18 16:10 Lab Results 09/09/18 09/09/18 09/09/18 Range/Units 16:10 16:10 16:10 WBC 13.5 H (4.3-11.1) K/mcL RBC 4.65 (3.82-4.97) M/mcL Hgb 14.1 (11.5-15.4) g/dL Hct 43.1 (35.3-44.9) % MCV 92.7 (83.0-100.0) fL MCH 30.3 (28.0-33.3) pg MCHC 32.7 (31.6-35.5) g/dL RDW 12.8 (11.5-14.5) % Plt Count 454 H (140-400) K/mcL MPV 9.2 L (9.4-12.4) fL Immature Gran % 0.4 (0-4) % Seg Neutrophils % 84.4 % Lymphocytes % 9.3 % Monocytes % 2.8 % Eosinophils % 2.7 % Basophils % 0.4 % Neutrophils # 11.4 H (1.6-8.9) K/mcL Lymphocytes # 1.3 (0.6-4.6) K/mcL Monocytes # 0.4 (0.0-1.3) K/mcL Eosinophils # 0.4 (0.0-0.6) K/mcL Basophils # 0.1 (0.0-0.2) K/mcL D-Dimer (0-500) ng/mLFEU Sodium 139 (136-145) mEq/L Potassium 3.5 (3.5-5.1) mEq/L Chloride 101 (98-107) mEq/L Carbon Dioxide 28 (23-29) mEq/L BUN 13 (6-20) mg/dL Creatinine 0.97 (0.60-1.20) mg/dL Est GFR ( Amer) > 60 (> 60) Est GFR (Non-Af Amer) > 60 (> 60) BUN/Creatinine Ratio 13 (6-26) Glucose 105 (70-105) mg/dL Calculated Osmolality 288 (280-300) Calcium 10.2 (8.6-10.3) mg/dL Troponin I 0.13 H* (< 0.04) ng/mL B-Natriuretic Peptide 55 (Less than 100) pg/mL 09/09/18 Range/Units 16:10 WBC (4.3-11.1) K/mcL RBC (3.82-4.97) M/mcL Hgb (11.5-15.4) g/dL Hct (35.3-44.9) % MCV (83.0-100.0) fL MCH (28.0-33.3) pg MCHC (31.6-35.5) g/dL RDW (11.5-14.5) % Plt Count (140-400) K/mcL MPV (9.4-12.4) fL Immature Gran % (0-4) % Seg Neutrophils % % Lymphocytes % % Monocytes % % Eosinophils % % Basophils % % Neutrophils # (1.6-8.9) K/mcL Lymphocytes # (0.6-4.6) K/mcL Monocytes # (0.0-1.3) K/mcL Eosinophils # (0.0-0.6) K/mcL Basophils # (0.0-0.2) K/mcL D-Dimer 578 H (0-500) ng/mLFEU Sodium (136-145) mEq/L Potassium (3.5-5.1) mEq/L Chloride (98-107) mEq/L Carbon Dioxide (23-29) mEq/L BUN (6-20) mg/dL Creatinine (0.60-1.20) mg/dL Est GFR ( Amer) (> 60) Est GFR (Non-Af Amer) (> 60) BUN/Creatinine Ratio (6-26) Glucose (70-105) mg/dL Calculated Osmolality (280-300) Calcium (8.6-10.3) mg/dL Troponin I (< 0.04) ng/mL B-Natriuretic Peptide (Less than 100) pg/mL S.B.A.R. - S.B.A.R. Transition of Care: Patient was discussed with Dr. Morales. Serum test is pending, plan for CTA chest if serum is negative to evaluate for pulmonary embolism. Patient will be admitted to hospitalist service. Situation: Demographics Background: Presenting Complaint, Relevant PMH, Meds, & Allergies Assessment: Vital Signs, Course and respsone to treatment, Exam Concerns, Patient/Family Expectation, Pertinant Lab Results, Outstanding Labs Recommendation: Barrier(s) to disposition, Recommendation based on pending studies, treatments, or consults Ernesto Report Given to: Dr. Sakshi Orozco Repor Time: 19:09 Attestation Statement - Attestation Attestation: Patient was seen with resident physician. I reviewed the history, physical, as sessment and plan, and agree with the findings. I also personally evaluated this patient and had [id number] time with this patient. 28-year-old female presents to the emergency department with chief complaint of shortness of breath chest pain, fevers, and nausea and vomiting. Patient states that symptoms started a couple days ago very reminiscent of when she had pneumonia last year. She is concerned she may have pneumonia again which ultimately prompted her visit to the ER. Pain in the chest described as diffuse and worse with cough and deep inspiration. No diarrhea. No cardiac history. Review of systems as above remainder negative. Physical exam vital signs demonstrate pre-significant hypoxia on arrival. Patient was eventually placed on more breathing mask because she is a mouth breather. We are able to get her pulse ox above 90%. ENT is unremarkable. Heart regular rhythm and rate. Lungs diffuse wheezing with increased work of breathing. Abdomen is soft and nontender. Extremities are unremarkable. Neurologically intact. Skin no obvious rashes. Psych normal. ED course. EKG did not show any acute ischemic changes. Chest x-ray revealed pneumonia. Patient was somewhat improved with breathing treatments. Troponin however was positive. Not sure if this is related to the pneumonia but she also had an elevated d-dimer. We will need to get a CT scan of the chest. We did speak with cardiology about the elevated troponin and he did not suggest a dditional treatments at this time. I once workup is complete this patient will be admitted to the hospitalist service for further evaluation and treatment. Patient's breathing was markedly improved with treatments. She was started on IV antibiotics. CT scan of the chest was pending. Patient was signed out to Dr. Baca for final disposition pending results of the CT scan. Patient will be admitted to the hospitalist service as per our land. I agree with resident physician assessment and plan. Critical care time 35 minutes.
[2018-09-09 17:02] LABS: Troponin I 0.13 ng/mL (< 0.04)
[2018-09-09] MEDS ORDERED: Aspirin 325 MG TABLET PO ONE (17:03)
[2018-09-09] MEDS ORDERED: Isovue-370 500 ML BOTTLE IVP ONE (17:13)
[2018-09-09] MEDS ORDERED: Azithromycin 500 MG in D5% in Water 250 ML IVPB ONE (17:37)
[2018-09-09] MEDS ORDERED: cefTRIAXone 1,000 MG in Water for inj. (sterile) 20 ML 10 ML IVP ONE (17:37)
--- NOTE | 2018-09-09 19:08 | Emergency Department Note ---
Disposition Clinical Impression: Elevated troponin Pneumonia Qualifiers: Pneumonia type: due to unspecified organism Laterality: unspecified laterality Lung location: unspecified part of lung Qualified Code(s): J18.9 - Pneumonia, unspecified organism Disposition: Admitted As Inpatient Condition: Fair Referrals: NONE,PCP [Primary Care Provider] - Forms: ED Satisfaction Letter Time of Disposition: 20:55 General Adult HPI - General Chief complaint: ED Shortness of Breath/Dyspnea Stated complaint: SOB/CP Time Seen by Provider: 09/09/18 15:33 Source: patient Limitations: no limitations - History of Present Illness Location: chest Pain Scale: 7 - Related Data Home Medications Medication Instructions Recorded Confirmed No Known Home Drugs 09/09/18 09/09/18 Allergies Allergy/AdvReac Type Severity Reaction Status Date / Time No Known Allergies Allergy Verified 08/29/18 14:21 Constitutional: Denies: fever, chills Eyes: Denies: vision change ENT ED: Reports: congestion Cardiovascular: Reports: chest pain. Denies: palpitations, syncope Respiratory: Reports: cough, dyspnea, wheezes, sputum production. Denies: hemoptysis Gastrointestinal: Reports: abdominal pain, nausea, vomiting. Denies: diarrhea, hematemesis, hematochezia Musculoskeletal: Denies: back pain, neck pain Integumentary: Denies: rash Neurological: Reports: headache Past Medical History - Past Medical History Medical history: Reports: no medical history Surgical history: Reports: non-contributory, cholecystectomy, other Psychiatric history: Reports: no psych history SELF STORAGE MANAGER history: Reports: no SELF STORAGE MANAGER history - Social History Smoking Status: Current every day smoker Smokeless Tobacco Status: No Alcohol use: Reports: none Drug use: Reports: none Physical Exam - General Limitations: no limitations General appearance: alert, in no apparent distress Course Course Narrative: accepted patient from Dr. Salmeron for admission. CTA pending. cards consulted secondary to troponoin and instructed that this is likely secondary to her pneumoina. ABX started. - Consultations Consultation #1: discussed case with Dr. montanez and she has been accepted to the medicine service Time: 20:55 Vital Signs Temperature 99.2 F 09/09/18 15:23 Pulse Rate 117 09/09/18 15:23 Respiratory Rate 30 09/09/18 15:23 Blood Pressure 118/81 09/09/18 15:23 O2 Sat by Pulse Oximetry 83 09/09/18 15:23 Temperature 99.7 F H 09/09/18 15:50 Pulse Rate 95 09/09/18 20:36 Respiratory Rate 24 09/09/18 20:36 Blood Pressure 106/56 09/09/18 20:36 O2 Sat by Pulse Oximetry 92 09/09/18 20:36 Oxygen Delivery Oxygen Delivery Nasal Cannula Medical Decision Making - Lab Data Result diagrams: 09/09/18 16:10 09/09/18 16:10 Lab Results 09/09/18 09/09/18 09/09/18 Range/Units 16:10 16:10 16:10 WBC 13.5 H (4.3-11.1) K/mcL RBC 4.65 (3.82-4.97) M/mcL Hgb 14.1 (11.5-15.4) g/dL Hct 43.1 (35.3-44.9) % MCV 92.7 (83.0-100.0) fL MCH 30.3 (28.0-33.3) pg MCHC 32.7 (31.6-35.5) g/dL RDW 12.8 (11.5-14.5) % Plt Count 454 H (140-400) K/mcL MPV 9.2 L (9.4-12.4) fL Immature Gran % 0.4 (0-4) % Seg Neutrophils % 84.4 % Lymphocytes % 9.3 % Monocytes % 2.8 % Eosinophils % 2.7 % Basophils % 0.4 % Neutrophils # 11.4 H (1.6-8.9) K/mcL Lymphocytes # 1.3 (0.6-4.6) K/mcL Monocytes # 0.4 (0.0-1.3) K/mcL Eosinophils # 0.4 (0.0-0.6) K/mcL Basophils # 0.1 (0.0-0.2) K/mcL D-Dimer (0-500) ng/mLFEU Sodium 139 (136-145) mEq/L Potassium 3.5 (3.5-5.1) mEq/L Chloride 101 (98-107) mEq/L Carbon Dioxide 28 (23-29) mEq/L BUN 13 (6-20) mg/dL Creatinine 0.97 (0.60-1.20) mg/dL Est GFR ( Amer) > 60 (> 60) Est GFR (Non-Af Amer) > 60 (> 60) BUN/Creatinine Ratio 13 (6-26) Glucose 105 (70-105) mg/dL Calculated Osmolality 288 (280-300) Calcium 10.2 (8.6-10.3) mg/dL Troponin I 0.13 H* (< 0.04) ng/mL B-Natriuretic Peptide 55 (Less than 100) pg/mL Serum , Qual (Negative) 09/09/18 09/09/18 Range/Units 16:10 18:49 WBC (4.3-11.1) K/mcL RBC (3.82-4.97) M/mcL Hgb (11.5-15.4) g/dL Hct (35.3-44.9) % MCV (83.0-100.0) fL MCH (28.0-33.3) pg MCHC (31.6-35.5) g/dL RDW (11.5-14.5) % Plt Count (140-400) K/mcL MPV (9.4-12.4) fL Immature Gran % (0-4) % Seg Neutrophils % % Lymphocytes % % Monocytes % % Eosinophils % % Basophils % % Neutrophils # (1.6-8.9) K/mcL Lymphocytes # (0.6-4.6) K/mcL Monocytes # (0.0-1.3) K/mcL Eosinophils # (0.0-0.6) K/mcL Basophils # (0.0-0.2) K/mcL D-Dimer 578 H (0-500) ng/mLFEU Sodium (136-145) mEq/L Potassium (3.5-5.1) mEq/L Chloride (98-107) mEq/L Carbon Dioxide (23-29) mEq/L BUN (6-20) mg/dL Creatinine (0.60-1.20) mg/dL Est GFR ( Amer) (> 60) Est GFR (Non-Af Amer) (> 60) BUN/Creatinine Ratio (6-26) Glucose (70-105) mg/dL Calculated Osmolality (280-300) Calcium (8.6-10.3) mg/dL Troponin I (< 0.04) ng/mL B-Natriuretic Peptide (Less than 100) pg/mL Serum , Qual Negative (Negative)
[2018-09-09] MEDS ORDERED: Naloxone 0.4 MG/ML INJ IVP PRN (21:57)
[2018-09-09] MEDS ORDERED: Acetaminophen 325 MG TABLET PO PRN (21:57)
--- NOTE | 2018-09-09 22:08 | Internal Med History&Physical ---
Date of Encounter: 09/09/18 Time of Encounter: 22:06 Internal Medicine - H&P: HPI Chief complaint: SOB Admitted From: Home Plans for Post Hospital Care: Home History of present illness: Yael Mosley is a 28-year-old obese woman who is currently homeless living in her car who reports being treated for pneumonia multiple times over the past year presenting to the ER complaining of cough that is poorly pr oductive, wheezing, shortness of breath, chest pain for the past 1 day preceded by feeling unwell over the last 1 week. She says her coughing episodes subsequently illicit nausea and vomiting because of how severe they get. She reported feeling hot and cold over the past 1 day but is unaware she actually had a fever. No hemoptysis. On arrival to the ER she was notably tachycardic, tachypneic and hypoxic requiring supplemental oxygen. She had an elevated d- dimer and positive troponin for which reason a CTA was done which ruled out pulmonary embolism but did show bilateral groundglass opacities concerning for an inflammatory or atypical infectious process. She was given ceftriaxone and a zithromycin. Lab work remarkable for a leukocyte count of 13.5 while the rest of her parameters are within normal limits. Vitals: Reviewed General: Well-developed female sitting up in bed in no acute distress. Skin: Warm, dry HEENT: Dry mucous membranes. No conjunctivae pallor. Neck: No lymphadenopathy. No JVD. No carotid bruits. No palpable thyroid. Chest: Diminished thoracic expansion. Scattered wheezes in the upper lung dougherty. Heart: Normal S1 & S2; rhythmic. No rubs or murmurs. Abdomen: Non-distended, soft and non-tender to palpation. No peritoneal reaction. Extremities: No clubbing, cyanosis or edema. No calf tenderness. Normal distal pulses. Neurological: Awake, alert and oriented to person, place and time. No focal deficits. Psych: Affect appropriate. Past Med Surg Social Fam HX - Past Medical History Medical history: no medical history Psychiatric history: no psych history - Past Surgical History Surgical History: non-contributory, cholecystectomy, other Additional surgical history: T&A, lt wrist cyst excision, PE TUBES - Social History Smoking Status: Current every day smoker Smokeless Tobacco Status: No Alcohol use: none Drug use: none - Family History Mother Hx Family Endocrine Disorder: Yes (DM II) Internal Medicine - H&P: Meds No Known Home Drugs 09/09/18 [History] Allergy/AdvReac Type Severity Reaction Status Date / Time No Known Allergies Allergy Verified 08/29/18 14:21 All Systems PM: A 10-system review of systems was performed and is negative for pertinent findings except as documented above in the HPI. - Constitutional Vitals: Temp Pulse Resp BP Pulse Ox 99.7 F H 95 24 104/54 92 09/09/18 15:50 09/09/18 20:36 09/09/18 21:39 09/09/18 21:39 09/09/18 20:36 Exam: . Internal Med - H&P Results - Labs CBC & Chem 7: 09/09/18 16:10 09/09/18 16:10 Labs: Short CBC 09/09/18 Range/Units 16:10 WBC 13.5 H (4.3-11.1) K/mcL Hgb 14.1 (11.5-15.4) g/dL Hct 43.1 (35.3-44.9) % Plt Count 454 H (140-400) K/mcL Neutrophils # 11.4 H (1.6-8.9) K/mcL BMP 09/09/18 16:10 Sodium 139 Potassium 3.5 Chloride 101 Carbon Dioxide 28 BUN 13 Creatinine 0.97 Glucose 105 Calcium 10.2 Cardiac Enzymes 09/09/18 Range/Units 16:10 Troponin I 0.13 H* (< 0.04) ng/mL - Impressions ITS Impressions Chest X-Ray 09/09/18 15:45 IMPRESSION: 1. Left base airspace opacity. In the proper clinical setting, finding would be compatible with pneumonia. D/ / Mark Funes MD / Mark Funes MD Interpreting Provider: Mark Funes MD Chest CTA 09/09/18 17:13 IMPRESSION: 1. No evidence of acute pulmonary embolism. 2. Multifocal bilateral ground-glass opacities and evolving infiltrates are present bilaterally. These findings are concerning for an atypical pneumonia. Follow-up recommended to assure resolution. 3. Mild reactive hilar and subcarinal lymphadenopathy. D/ / 09/09/2018 20:34:19 Santy Borrero MD / darren Interpreting Provider: Santy Borrero MD - Assessment and Plan (1) Sepsis due to pneumonia Current Visit: Yes Status: Acute Assessment and plan: Somewhat atypical in radiologic presentation. Concern that she may initially have had a viral process but now superimposed with a bacterial infection prompting her sepsis syndrome. Will send blood cultures, urine legionella and strep antigen. Continue ceftriaxone/azithromycin for now. (2) Acute respiratory failure with hypoxia Current Visit: Yes Status: Resolved Assessment and plan: Seemingly secondary to pneumonia. Will continue supplemental oxygen and continue to manage underlying precipitating condition. (3) Elevated troponin Current Visit: Yes Status: Acute Assessment and plan: No clinical or electrocardiographic signs to suggest ACS. Likely secondary to demand ischemia in the setting of sepsis syndrome. ASA loading dose given. Will trend values. No indication for anticoagulation. (4) DVT prophylaxis Current Visit: Yes Status: Acute Assessment and plan: SubQ heparin ordered. (5) Obese Current Visit: Yes Status: Chronic Assessment and plan: Counseled and educated on therapeutic lifestyle changes for weight loss as it will be of benefit in controlling comorbidities. Elevator Supervisor evaluation advised. Qualifiers: Obesity type: due to excess calories Obesity classification: adult class 2 (BMI 35 - 39.9) Serious obesity comorbidity presence: unspecified whether serious comorbidity present Body mass index: BMI 37.0-37.9 Qualified Code(s): E66.09 - Other obesity due to excess calories; Z68.37 - Body mass index (BMI) 37.0-37.9, adult - Time Spent With Patient Total time spent is greater than 50% in coordination of care (as documented) at patient's floor/unit and/or counseling patient: Greater than 35 minutes
[2018-09-09] MEDS: traMADol 50 MG TABLET PO PRN (22:32)
[2018-09-09] MEDS: Ringers Solution, Lactated 1,000 ML IVC SCH (22:33)
[2018-09-09] MEDS: *HR* Heparin 5,000 UNIT/ML VIAL SQ SCH (23:21)
[2018-09-09] MEDS: GuaiFENesin/Dextromethorphan TABLET PO SCH (23:21)
[2018-09-09] MEDS: Ipratropium/Albuterol Neb 3 ML IH SCH (23:48)
[2018-09-10] MEDS: Ipratropium/Albuterol Neb 3 ML IH SCH ×3 (04:37→11:40)
[2018-09-10 05:27] LABS: Basophils % 0.2 %; Hematocrit 37.8 % (35.3-44.9); Immature Granulocytes % 0.5 % (0-4); Lymphocytes # 1.3 K/mcL (0.6-4.6); Mean Corpuscular HGB Conc 32.8 g/dL (31.6-35.5); Mean Corpuscular Hemoglobin 30.1 pg (28.0-33.3); Mean Corpuscular Volume 91.7 fL (83.0-100.0); Mean Platelet Volume 9.1 fL (9.4-12.4); Monocytes # 0.3 K/mcL (0.0-1.3); Monocytes % 2.7 %; Neutrophils # 10.4 K/mcL (1.6-8.9); Platelet Count 387 K/mcL (140-400); Red Blood Count 4.12 M/mcL (3.82-4.97); Red Cell Distribution Width 12.8 % (11.5-14.5); Segmented Neutrophils % 85.6 %
[2018-09-10 05:28] LABS: Hemoglobin 12.4 g/dL (11.5-15.4)
[2018-09-10 05:36] LABS: INR 1.3; Prothrombin Time 14.1 Seconds (9.4-12.1)
[2018-09-10 05:38] LABS: Activated Partial Thrombo Time 30.9 Seconds (26.0-36.0)
[2018-09-10] MEDS: Ringers Solution, Lactated 1,000 ML IVC SCH (06:40)
[2018-09-10] MEDS: *HR* Heparin 5,000 UNIT/ML VIAL SQ SCH ×2 (08:48→17:56)
[2018-09-10] MEDS: GuaiFENesin/Dextromethorphan TABLET PO SCH (08:48)
[2018-09-10] MEDS: cefTRIAXone 1,000 MG in 0.9 % Sodium Chloride Mini Bag 100 ML IVPB SCH (08:49)
[2018-09-10] MEDS: traMADol 50 MG TABLET PO PRN ×2 (08:59→19:32)
[2018-09-10] MEDS: Azithromycin 500 MG in D5% in Water 250 ML IVPB SCH (10:26)
[2018-09-10 12:30] LABS: Amphetamine Screen,Urine Negative ng/mL (Cutoff=1000); Barbiturate Screen,Urine Negative ng/mL (Cutoff=200); Benzodiazepines Screen,Urine Negative ng/mL (Cutoff=200); Cannabinoid Screen,Urine Negative ng/mL (Cutoff = 50); Cocaine Screen,Urine Negative ng/mL (Cutoff= 300); Opiate Screen,Urine Positive ng/mL (Cutoff=300); Phencyclidine Screen,Urine Negative ng/mL (Cutoff=25)
--- NOTE | 2018-09-10 14:14 | Internal Med Progress Note ---
Hospitalist Progress Note - Encounter Date of Encounter: 09/10/18 Time of Encounter: 12:00 - Subjective Interval History: Ms. Mosley is a 28-year-old F chronic tobacco dependent and obese pt who is currently homeless living in her car who reports being treated for pneumonia multiple times over the past year presented to the ER complaining of cough that is productive, wheezing, shortness of breath, chest pain for the past 1 day preceded by feeling unwell over the last 1 week. She had an elevated d-dimer and positive troponin for which reason a CTA was done which ruled out pulmonary embolism but did show bilateral groundglass opacities concerning for an inflammatory or atypical infectious process. She was admitted in the hospital and started her on empirical antibiotic and supportive care. Patient does have acute hypoxia currently on 5 L oxygen through oxy mask. Patient stated she is feeling little better today. Still have moderate to severe shortness of breath and dyspnea on exertion. Denied any chest pain. She does complaining about generalized body aches. She still have cough with greenish expectoration - Exam Vitals: Temp Pulse Resp BP Pulse Ox 97.7 F 73 20 101/64 94 09/10/18 10:45 09/10/18 10:45 09/10/18 11:40 09/10/18 10:45 09/10/18 11:40 Exam: Gen: Alert, awake, Oriented to time,place and person Chest: Diminished breath sounds B/L, Moderate to severe wheezing, No crackles, No rales, ronchi++ Heart: S1S2+ RRR No murmurs Abd: Soft, NT, BS +, No organomegaly Ext: No edema, pulses are palpable, No calf tenderness Neuro : Benign findings Skin: No rash. - Assessment and Plan (1) Sepsis due to pneumonia Current Visit: Yes Status: Acute Assessment and Plan: She does meet sepsis criteria with tachycardia, tachypnea and source of infection as pneumonia reviewer chest x-ray showed multi lobular pneumonia concerning for bacterial pneumonia her step pneumonia and Legionella antigen came back is negative so far blood cultures no growth influenza A & B negative continue close monitoring continue empirical antibiotic Rocephin and azithromycin started her on systemic steroids since patient does have reactive airway disease with moderate diffuse wheezing (2) Elevated troponin Current Visit: Yes Status: Acute Assessment and Plan: Mostly due to demand ischemia with acute hypoxic respiratory failure troponin trended down to normal continue close monitoring no further workup needed (3) Acute respiratory failure with hypoxia Current Visit: Yes Status: Resolved Assessment and Plan: Seemingly secondary to pneumonia. Currently on 4 lit oxygen through oxy mask continue above care try to wean her off the oxygen as she tolerates (4) Obese Current Visit: Yes Status: Chronic Assessment and Plan: Counseled to lose weight educated about lifestyle modifications (5) DVT prophylaxis Current Visit: Yes Status: Acute Assessment and Plan: on SQ Heparin (6) Tobacco dependence Current Visit: Yes Status: Acute Assessment and Plan: Counseled to quit smoking placed on nicotine patch - Time Spent with Patient Total time spent is greater than 50% in coordination of care (as documented) at patient's floor/unit and/or counseling patient: Internal Medicine: Result - Labs CBC & Chem 7: 09/10/18 05:05 09/09/18 16:10 Labs: Short CBC 09/09/18 09/10/18 Range/Units 16:10 05:05 WBC 13.5 H 12.2 H (4.3-11.1) K/mcL Hgb 14.1 12.4 D (11.5-15.4) g/dL Hct 43.1 37.8 (35.3-44.9) % Plt Count 454 H 387 (140-400) K/mcL Neutrophils # 11.4 H 10.4 H (1.6-8.9) K/mcL BMP 09/09/18 16:10 Sodium 139 Potassium 3.5 Chloride 101 Carbon Dioxide 28 BUN 13 Creatinine 0.97 Glucose 105 Calcium 10.2 Cardiac Enzymes 09/09/18 09/09/18 09/10/18 Range/Units 16:10 22:37 05:05 Troponin I 0.13 H* < 0.03 < 0.03 (< 0.04) ng/mL - ABG Interpretation ABG results: PT/INR, D-dimer PT 14.1 Seconds (9.4-12.1) H 09/10/18 05:05 D-Dimer 578 ng/mLFEU (0-500) H 09/09/18 16:10 - Impressions Impressions Chest X-Ray 09/09/18 15:45 IMPRESSION: 1. Left base airspace opacity. In the proper clinical setting, finding would be compatible with pneumonia. D/ / Mark Funes MD / Mark Funes MD Interpreting Provider: Mark Funes MD Chest CTA 09/09/18 17:13 IMPRESSION: 1. No evidence of acute pulmonary embolism. 2. Multifocal bilateral ground-glass opacities and evolving infiltrates are present bilaterally. These findings are concerning for an atypical pneumonia. Follow-up recommended to assure resolution. 3. Mild reactive hilar and subcarinal lymphadenopathy. D/ / 09/09/2018 20:34:19 Santy Borrero MD / darren Interpreting Provider: Santy Borrero MD Consult Discharge Plan - Plan Referrals: Julia Carroll MD [Non-Partnered Physician] - (4) Obese Qualifiers: Obesity type: due to excess calories Obesity classification: adult class 2 (BMI 35 - 39.9) Serious obesity comorbidity presence: unspecified whether serious comorbidity present Body mass index: BMI 37.0-37.9 Qualified Code(s): E66.09 - Other obesity due to excess calories; Z68.37 - Body mass index (BMI) 37.0-37.9, adult
[2018-09-10] MEDS: Albuterol 2.5 MG/3 ML NEBULIZER IH PRN (16:28)
[2018-09-10] MEDS: MethylPREDNISolone 40 MG/ML VIAL IVP SCH ×2 (17:56→19:20)
[2018-09-11] MEDS: MethylPREDNISolone 40 MG/ML VIAL IVP SCH ×4 (00:10→17:18)
[2018-09-11] MEDS: *HR* Heparin 5,000 UNIT/ML VIAL SQ SCH ×3 (00:10→17:18)
[2018-09-11] MEDS: cefTRIAXone 1,000 MG in 0.9 % Sodium Chloride Mini Bag 100 ML IVPB SCH (09:53)
[2018-09-11] MEDS: Azithromycin 500 MG in D5% in Water 250 ML IVPB SCH (10:45)
--- NOTE | 2018-09-11 11:49 | Internal Med Progress Note ---
Hospitalist Progress Note - Encounter Date of Encounter: 09/11/18 Time of Encounter: 11:48 - Subjective Interval History: Ms. Mosley is a 28-year-old F chronic tobacco dependent and obese pt who is currently homeless living in her car who reports being treated for pneumonia multiple times over the past year presented to the ER complaining of cough that is productive, wheezing, shortness of breath, chest pain for the past 1 day preceded by feeling unwell over the last 1 week. She had an elevated d-dimer and positive troponin for which reason a CTA was done which ruled out pulmonary embolism but did show bilateral groundglass opacities concerning for an inflammatory or atypical infectious process. She was admitted in the hospital and started her on empirical antibiotic and supportive care. Patient stated she is feeling better today. Currently breathing comfortably on room air with SPo 2 @ 90. Still having moderate shortness of breath and dyspnea on exertion. Still have cough with brownish expectoration - Exam Vitals: Temp Pulse Resp BP Pulse Ox 97.4 F L 58 17 144/77 88 09/11/18 11:06 09/11/18 11:06 09/11/18 11:06 09/11/18 11:06 09/11/18 11:06 Exam: Gen: Alert, awake, Oriented to time,place and person Chest: Diminished breath sounds B/L, Moderate wheezing, No crackles, No rales, ronchi++ Heart: S1S2+ RRR No murmurs Abd: Soft, NT, BS +, No organomegaly Ext: No edema, pulses are palpable, No calf tenderness Neuro : Benign findings Skin: No rash. - Assessment and Plan (1) Sepsis due to pneumonia Current Visit: Yes Status: Acute Assessment and Plan: She does meet sepsis criteria with tachycardia, tachypnea and source of infection as pneumonia Improving now chest x-ray showed multi lobular pneumonia concerning for bacterial pneumonia her step pneumonia and Legionella antigen came back is negative so far blood cultures no growth influenza A & B negative continue close monitoring continue empirical antibiotic Rocephin and azithromycin start tapering steroids (2) Reactive airway disease Current Visit: Yes Status: Acute Assessment and Plan: Due to PNA Improving start tapering steroids (3) Elevated troponin Current Visit: Yes Status: Acute Assessment and Plan: Mostly due to demand ischemia with acute hypoxic respiratory failure troponin trended down to normal continue close monitoring no further workup needed (4) Acute respiratory failure with hypoxia Current Visit: Yes Status: Resolved Assessment and Plan: Seemingly secondary to pneumonia. improving currently on RA May need home O2 eval in AM (5) Obese Current Visit: Yes Status: Chronic Assessment and Plan: Counseled to lose weight educated about lifestyle modifications (6) DVT prophylaxis Current Visit: Yes Status: Acute Assessment and Plan: on SQ Heparin (7) Tobacco dependence Current Visit: Yes Status: Acute Assessment and Plan: Counseled to quit smoking placed on nicotine patch - Time Spent with Patient Total time spent is greater than 50% in coordination of care (as documented) at patient's floor/unit and/or counseling patient: Internal Medicine: Result - Labs CBC & Chem 7: 09/10/18 05:05 09/09/18 16:10 - ABG Interpretation ABG results: PT/INR, D-dimer PT 14.1 Seconds (9.4-12.1) H 09/10/18 05:05 D-Dimer 578 ng/mLFEU (0-500) H 09/09/18 16:10 Consult Discharge Plan - Plan Referrals: Jorge L Mosley MD [Non-Partnered Physician] - 09/20/18 3:15 pm (2) Reactive airway disease Qualifiers: Asthma severity: moderate (5) Obese Qualifiers: Obesity type: due to excess calories Obesity classification: adult class 2 (BMI 35 - 39.9) Serious obesity comorbidity presence: unspecified whether serious comorbidity present Body mass index: BMI 37.0-37.9 Qualified Code(s): E66.09 - Other obesity due to excess calories; Z68.37 - Body mass index (BMI) 37.0-37.9, adult
[2018-09-11] MEDS: traMADol 50 MG TABLET PO PRN (17:17)
[2018-09-11] MEDS: Albuterol 2.5 MG/3 ML NEBULIZER IH PRN (20:23)
[2018-09-11] MEDS ORDERED: Melatonin 3 MG TABLET PO PRN (20:26)
[2018-09-12] MEDS: traMADol 50 MG TABLET PO PRN (00:09)
[2018-09-12] MEDS: *HR* Heparin 5,000 UNIT/ML VIAL SQ SCH (00:10)
[2018-09-12] MEDS: MethylPREDNISolone 40 MG/ML VIAL IVP SCH (06:23)
[2018-09-12 06:48] VITALS: BP 118/67
--- NOTE | 2018-09-12 09:25 | Discharge Summary ---
- NOTES TO OUTPATIENT PROVIDER Notes to Outpatient Provider: f/u with PCP in one week. Please quit smoking. Orders not resulted at time of discharge: Pending orders 09/09/18 22:37 Culture,Blood [BC] Stat Date of Encounter: 09/12/18 Time of Encounter: 09:08 - Discharge Diagnosis (1) Sepsis due to pneumonia Priority: Primary Status: Acute (2) Reactive airway disease Priority: Primary Status: Acute Qualifiers: Asthma severity: moderate Asthma complication type: with acute exacerbation Qualified Code(s): J45.41 - Moderate persistent asthma with (acute) exacerbation (3) Elevated troponin Priority: Primary Status: Acute (4) Acute respiratory failure with hypoxia Priority: Primary Status: Resolved (5) Obese Priority: Secondary Status: Chronic Qualifiers: Obesity type: due to excess calories Obesity classification: adult class 2 (BMI 35 - 39.9) Serious obesity comorbidity presence: unspecified whether serious comorbidity present Body mass index: BMI 37.0-37.9 Qualified Code(s): E66.09 - Other obesity due to excess calories; Z68.37 - Body mass index (BMI) 37.0-37.9, adult (6) DVT prophylaxis Priority: Secondary Status: Acute (7) Tobacco dependence Priority: Secondary Status: Acute Hospital course: Ms. Mosley is a 28-year-old F chronic tobacco dependent and obese pt who is currently homeless living in her car who reports being treated for pneumonia multiple times over the past year presented to the ER complaining of cough that is productive, wheezing, shortness of breath, chest pain for the past 1 day preceded by feeling unwell over the last 1 week. She had an elevated d-dimer and positive troponin for which reason a CTA was done which ruled out pulmonary embolism but did show bilateral groundglass opacities concerning for an inflammatory or atypical infectious process. She was admitted in the hospital and started her on empirical antibiotic and high dose steroids. Initially she was on high flow O2 at 4-5 lits which got better now. She is breathing comfortably on room air now. Will discharge her home in a stable condition today after an ambulating pulse Oxy study. - Time Spent with Patient Total time spent providing and/or coordinating discharge services: - Discharge Medications Prescriptions: New Albuterol Sulfate [Albuterol Inhaler] 2 puff IH Q6HR PRN #1 hfa.aer.[email or web address] PRN Reason: Shortness Of Breath GuaiFENesin/Dextromethorphan [Robitussin/DM] 10 ml PO Q6HR PRN #240 ml PRN Reason: Cough Levofloxacin [Levaquin] 750 mg PO DAILY #4 tablet predniSONE [PredniSONE] 40 mg PO DAILY #10 tablet Home Medications: Albuterol Sulfate [Albuterol Inhaler] 2 puff IH Q6HR PRN #1 hfa.aer.[email or web address] 09/12/18 [Rx] GuaiFENesin/Dextromethorphan [Robitussin/DM] 10 ml PO Q6HR PRN #240 ml 09/12/18 [Rx] Levofloxacin [Levaquin] 750 mg PO DAILY #4 tablet 09/12/18 [Rx] predniSONE [PredniSONE] 40 mg PO DAILY #10 tablet 09/12/18 [Rx] Allergies/Adverse Reactions: Allergy/AdvReac Type Severity Reaction Status Date / Time No Known Allergies Allergy Verified 08/29/18 14:21 Date of admission: 09/09/18 21:20 Primary care physician: PCP NONE Consults: 09/10/18 09:52 Consult to Nurse Navigator [CONS] Routine Comment: PNEUMONIA - Constitutional Vitals: Temp Pulse Resp BP Pulse Ox 97.8 F 50 19 118/67 91 09/12/18 06:46 09/12/18 06:46 09/12/18 06:46 09/12/18 06:46 09/12/18 06:46 General appearance: Present: A&O X 3, no acute distress, answers questions appropriately Exam: Gen: Alert, awake, Oriented to time,place and person Chest: Diminished breath sounds B/L, Mild to Moderate wheezing, No crackles, No rales, ronchi++ Heart: S1S2+ RRR No murmurs Abd: Soft, NT, BS +, No organomegaly Ext: No edema, pulses are palpable, No calf tenderness Neuro : Benign findings Skin: No rash. - Patient Status Disposition: Home, Self-Care Condition: Good Overall status at discharge: patient is back to baseline - Discharge Instructions Follow Up With: Jorge L Mosley MD [Non-Partnered Physician] - 09/20/18 3:15 pm - Diet and Activity Activity: increase activity as tolerated Diet: low salt diet
--- NOTE | 2018-09-13 09:50 | Electrocardiograph Report ---
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
== END 2018-09-12 10:13 | disposition home or self-care (01) | DRG 720 ==
LOC: 3BNU 15:10 → EMEROOARM 15:10 → OBSVTOIN 21:20 → SUATTDRO 21:20 → 3BNU 21:54
PROVIDERS: ADMIT Internal Medicine; ATTEND Family Medicine

== ENCOUNTER → 2019-10-21 04:27 | Observation (INO) ==
[2019-10-21 04:50] LABS: Amphetamine Screen,Urine Negative ng/mL (Cutoff=1000); Barbiturate Screen,Urine Negative ng/mL (Cutoff=200); Benzodiazepines Screen,Urine Negative ng/mL (Cutoff=200); Cannabinoid Screen,Urine Negative ng/mL (Cutoff = 50); Cocaine Screen,Urine Negative ng/mL (Cutoff= 300); Opiate Screen,Urine Negative ng/mL (Cutoff=300); Phencyclidine Screen,Urine Negative ng/mL (Cutoff=25)
== END | disposition home or self-care (01) ==
LOC: 1NENULAB
PROVIDERS: ADMIT Student in an Organized Health Care Education/Training Program; ATTEND Student in an Organized Health Care Education/Training Program

== ENCOUNTER 2019-12-12 10:00 | Inpatient (IN) ==
[2019-12-12] MEDS ORDERED: Naloxone 0.4 MG/ML INJ IVP PRN (11:08)
[2019-12-12] MEDS ORDERED: Metoclopramide 10 MG/2 ML VIAL IVP PRN (11:08)
[2019-12-12] MEDS ORDERED: Famotidine 20 MG/2 ML VIAL IVP PRN (11:08)
[2019-12-12] MEDS ORDERED: Oxytocin 20 units/ LR 1000 mL 20 UNIT/1,000 ML BAG IVC SCH (11:15)
[2019-12-12] MEDS ORDERED: Ringers Solution, Lactated 1,000 ML IVC SCH (11:15)
[2019-12-12 11:32] LABS: Basophils % 0.1 %; Eosinophils # 0.1 K/mcL (0.0-0.6); Eosinophils % 1.3 %; Hematocrit 32.2 % (35.3-44.9); Hemoglobin 10.6 g/dL (11.5-15.4); Immature Granulocytes % 0.4 % (0-4); Lymphocytes # 2.3 K/mcL (0.6-4.6); Lymphocytes % 28.4 %; Mean Corpuscular HGB Conc 32.9 g/dL (31.6-35.5); Mean Corpuscular Hemoglobin 31.6 pg (28.0-33.3); Mean Corpuscular Volume 96.1 fL (83.0-100.0); Mean Platelet Volume 10.1 fL (9.4-12.4); Monocytes # 0.5 K/mcL (0.0-1.3); Monocytes % 5.6 %; Neutrophils # 5.3 K/mcL (1.6-8.9); Platelet Count 186 K/mcL (140-400); Red Blood Count 3.35 M/mcL (3.82-4.97); Red Cell Distribution Width 12.7 % (11.5-14.5); Segmented Neutrophils % 64.2 %; White Blood Count 8.2 K/mcL (4.3-11.1)
[2019-12-12] MEDS ORDERED: EPHEDrine 50 MG/ML VIAL IVP PRN (11:32)
[2019-12-12] MEDS ORDERED: *HR* FentaNYL (PF) 100 MCG/2 ML VIAL EP ONE (11:32)
[2019-12-12] MEDS ORDERED: Bupivacaine-MPF 0.25% 10 ML VIAL EP ONE (11:32)
[2019-12-12] MEDS ORDERED: Bupivacaine-MPF 0.25% 10 ML VIAL ONE (11:33)
[2019-12-12] MEDS ORDERED: *HR* FentaNYL (PF) 100 MCG/2 ML VIAL ONE (11:34)
[2019-12-12 11:42] LABS: Amphetamine Screen,Urine Negative ng/mL (Cutoff=1000); Barbiturate Screen,Urine Negative ng/mL (Cutoff=200); Benzodiazepines Screen,Urine Negative ng/mL (Cutoff=200); Cannabinoid Screen,Urine Negative ng/mL (Cutoff = 50); Cocaine Screen,Urine Negative ng/mL (Cutoff= 300); Opiate Screen,Urine Negative ng/mL (Cutoff=300); Phencyclidine Screen,Urine Negative ng/mL (Cutoff=25)
[2019-12-12] MEDS ORDERED: Epidural Premix (fent/bupiv) 110 ML EP SCH (11:45)
[2019-12-12] MEDS ORDERED: Ondansetron 4 MG/2 ML VIAL ONE (21:06)
[2019-12-13] MEDS ORDERED: Benzocaine/Menthol 56 GM AEROSOL SPRAY TP PRN (01:18)
[2019-12-13] MEDS ORDERED: Lanolin 7 G OINT...G. TP PRN (01:18)
[2019-12-13] MEDS ORDERED: Oxytocin 20 units/ LR 1000 mL 20 UNIT/1,000 ML BAG IVC SCH (01:18)
[2019-12-13] MEDS ORDERED: Acetaminophen 325 MG TABLET PO PRN (01:18)
[2019-12-13] MEDS: Ibuprofen 600 MG TABLET PO PRN ×3 (01:41→21:40)
[2019-12-13 08:05] LABS: Basophils % 0.2 %; Eosinophils # 0.1 K/mcL (0.0-0.6); Eosinophils % 0.9 %; Hematocrit 29.5 % (35.3-44.9); Hemoglobin 9.3 g/dL (11.5-15.4); Immature Granulocytes % 0.3 % (0-4); Lymphocytes # 2.3 K/mcL (0.6-4.6); Mean Corpuscular HGB Conc 31.5 g/dL (31.6-35.5); Mean Corpuscular Volume 98.3 fL (83.0-100.0); Mean Platelet Volume 10.1 fL (9.4-12.4); Monocytes # 0.4 K/mcL (0.0-1.3); Monocytes % 4.3 %; Neutrophils # 7.1 K/mcL (1.6-8.9); Platelet Count 167 K/mcL (140-400); Red Cell Distribution Width 12.7 % (11.5-14.5); Segmented Neutrophils % 71.3 %; White Blood Count 9.9 K/mcL (4.3-11.1)
[2019-12-13] MEDS ORDERED: *HR* Methadone 10 MG TABLET PO SCH (09:00)
[2019-12-13] MEDS: Prenatal Vit/FA 1 EACH TABLET PO SCH (09:04)
[2019-12-13 21:59] VITALS: BP 106/60
[2019-12-14] MEDS: Prenatal Vit/FA 1 EACH TABLET PO SCH (09:47)
[2019-12-14] MEDS: Ibuprofen 600 MG TABLET PO PRN (09:47)
== END 2019-12-14 12:00 | disposition home or self-care (01) | DRG 560 ==
LOC: 1NENULAB 10:35 → 1NENUOBS 12-13 01:17
PROVIDERS: ADMIT Obstetrics & Gynecology; ATTEND Obstetrics & Gynecology